=== PATIENT | female | born 1985 | race Two or more races ===

== ENCOUNTER → 2023-05-10 | Outpatient (CLI) | payer OTHER ==
[2023-05-10 17:08] LABS: LUTEINIZING HORMONE 3.6 mIU/ML; PROLACTIN 8.75 NG/ML
[2023-05-10 17:09] LABS: PROGESTERONE 0.51 NG/ML
== END ==
LOC: M PLALAB 12:19
PROVIDERS: ATTEND Nurse Practitioner Family
DX: N95.9 Unspecified menopausal and perimenopausal disorder (principal)